=== PATIENT | male | born 1950 | race Caucasian/White ===

== ENCOUNTER 2025-04-20 06:24 | Inpatient (IN) ==
--- NOTE | 2025-04-18 09:32 | Anesthesiology Consultation ---
Date of Service April 18, 2025 Assessment & Plan (1) Encounter for pre-operative examination: - awaiting most recent PCP (Dr. Jose Ch [facility]) if available. Nothing further needed from abnormal EKG standpoint per detailed discussion with Dr. Baugh. - cardiology office note 10/20/24: "...heart failure with recovered EF secondary to nonischemic cardiomyopathy. Mild nonobstructive CAD...well compensated and euvolemic on exam...no angina...follow up in 1 year..." - Per tile roofer on 04/15: No known infectious disease contacts, current infectious disease symptoms in past 10 days or COVID positive test result in the past 30 days. Chart Review Chart Review: Patient NOT seen in Pre Admission Testing History Surgery Operation Date: 04/20/25 07:45 Proposed Procedures p L4-L5 Decompression and Fusion - Oracio Pemberton DO Height/Weight Height: 6 ft Weight: 72.575 kg Allergies Allergy/AdvReac Type Severity Reaction Status Date / Time [id number] Reductase AdvReac Severe Chest Verified 04/15/25 11:37 Inhibitor Pain, Muscle Pain Medications Home Medications Medication Instructions Recorded Confirmed Last Taken Balance Of Nature Fruit & Vegg 1 cap PO DAILY 04/15/25 04/15/25 Unknown Medical Marijuana 1 drp PO DAILY PRN Pain 04/15/25 04/15/25 Unknown carvedilol phosphate 20 mg 20 mg PO QAM 04/15/25 04/15/25 Unknown capsule,[id number] multiphase cholecalciferol (vitamin D3) 125 125 mcg PO BID 04/15/25 04/15/25 Unknown mcg (5,000 unit) tablet (Vitamin D3) diphenoxylate-atropine 2.5 1 tab PO DAILY PRN Diarrhea 04/15/25 04/15/25 Unknown mg-0.025 mg tablet fenofibrate micronized 200 mg 200 mg PO QAM 04/15/25 04/15/25 Unknown capsule gabapentin 300 mg capsule 300 mg PO BID 04/15/25 04/15/25 Unknown (Neurontin) hydrocodone 5 mg-acetaminophen 325 1 tab PO TID PRN Pain 04/15/25 04/15/25 Unkno wn mg tablet levocetirizine 5 mg tablet (Xyzal) 5 mg PO QPM 04/15/25 04/15/25 Unknown lisinopril 2.5 mg tablet 2.5 mg PO QDL 04/15/25 04/15/25 Unknown methylprednisolone 4 mg tablets in 4 mg PO DAILY 04/15/25 04/15/25 Unknown a dose pack (Medrol (Bowen)) pantoprazole 20 mg tablet,delayed 20 mg PO HS PRN Acid Reflux 04/15/25 04/15/25 Unknown release (Protonix) sertraline 50 mg tablet 50 mg PO HS 04/15/25 04/15/25 Unknown trazodone 50 mg tablet 50 mg PO HS 04/15/25 04/15/25 Unknown Past Medical History Medical History Acid reflux Adverse effect of anesthesia "can't sleep afterwards for 2 days" Back pain Lumbar History of kidney stones stents/lithotripsy [place] (hard of hearing) hearing aids - doesn't wear Hypertension Past Surgical History Surgical History History of arthroscopy of right shoulder History of cardiac catheterization no stents >20 years ago - [facility] Gill History of cholecystectomy History of colonoscopy History of cystoscopy multiple with stents History of esophagogastroduodenoscopy (EGD) History of lithotripsy History of nasal surgery Social History Smoking Status: Heavy tobacco smoker Smoking cigarettes per day: 1 1/2 pack Do You Dip or Chew Tobacco: No Hx Alcohol Use: No Hx Substance Use: Yes substance use type: other Substance Use Type Other:: Medical Marijuana Drops Last Used Substance: Unknown Last Used Substance Other:: advised Lab Results Anesthesia Preop Results Results Anesthesia Widget: WBC 7.82 K/ul (4.8-10.8) 04/14/25 Hgb 16.6 g/dl (14.0-18.0) 04/14/25 Hct 48.3 % (42.0-52.0) 04/14/25 Plt 267 K/uL (130-400) 04/14/25 Na 143 mmol/L (136-145) 04/14/25 K 4.1 mmol/L (3.5-5.1) 04/14/25 Cl 108 mmol/L (98-107) H 04/14/25 CO2 26 mmol/L (21-32) 04/14/25 BUN 24 mg/dl (6-23) H 04/14/25 Creat 1.26 mg/dl (0.6-1.4) 04/14/25 Glucose Level 129 mg/dl (70-99(Fasting)) H 04/14/25 PT 10.9 Seconds (9.0-12.0) 04/14/25 PTT 29 Seconds (21-31) 04/14/25 INR 1.0 (0.9-1.1) 04/14/25 Urine Color Yellow 04/14/25 Urine Appearance Clear (Clear) 04/14/25 Urine pH 5.0 (4.5-7.5) 04/14/25 Urine Specific [place] 1.021 (1.000-1.030) 04/14/25 Urine Protein Negative (Negative) 04/14/25 Urine Glucose (UA) Negative (Negative) 04/14/25 Urine Ketones Negative (Negative) 04/14/25 Urine Blood Negative (Negative) 04/14/25 Urine Nitrite Negative (Negative) 04/14/25 Urine Bilirubin Negative (Negative) 04/14/25 Urine Urobilinogen Negative (Negative) 04/14/25 Urine Leukocyte Esterase Trace (Negative) H 04/14/25 Urine WBC (Auto) 0-5 /hpf (0-5) 04/14/25 Urine RBC (Auto) 3-5 /hpf (0-2) H 04/14/25 Urine Hyaline Casts (Auto) 0-2 /lpf (0-2) 04/14/25 Urine Epithelial Cells (Auto) 0-2 /hpf (0-2) 04/14/25 Urine Bacteria (Auto) None Seen (None Seen) 04/14/25 Blood Type O Positive 04/14/25 Antibody Screen NEGATIVE 04/14/25 Testing Electrocardiogram Date: 04/14/25 Poor data quality Sinus rhythm, rate 85 bpm Rightward axis Possible anterior infarct, age undetermined Chest X-Ray Date: 04/14/25 No acute findings. Echocardiogram Date: 11/18/23 EF 50-55% Mild tricuspid regurgitation Mild pulmonic regurgitation Grade I diastolic dysfunction
[2025-04-20] MEDS ORDERED: ONDANSETRON INJ 2 MG/ML 2 ML VIAL IV PRN ×2 (06:53→12:16)
[2025-04-20] MEDS ORDERED: ATROPINE SULFATE 0.1 MG/ML 10ML SYR IV PRN (06:53)
[2025-04-20] MEDS ORDERED: PHENYLEPHRINE HCL 10 MG/ML VIAL ONE (06:57)
[2025-04-20] MEDS ORDERED: ONDANSETRON INJ 2 MG/ML 2 ML VIAL ONE (06:57)
[2025-04-20] MEDS ORDERED: DEXAMETHASONE SOD INJ 4 MG/ML VIAL ONE (06:57)
[2025-04-20] MEDS ORDERED: PROPOFOL IV EMULSION 10 MG/ML 20 ML VIAL IV ONE (06:57)
[2025-04-20] MEDS ORDERED: MIDAZOLAM HCL 1 MG/ML 2ML VIAL ONE (06:57)
[2025-04-20] MEDS ORDERED: LIDOCAINE 2% 2 ML VIAL/AMP(20MG/ML) INFIL ONE (06:57)
[2025-04-20] MEDS ORDERED: KETAMINE HCL 10MG/ML SYR ONE (06:58)
[2025-04-20] MEDS ORDERED: DexMEDEtomidine HCL IV 100 MCG/ML VIAL IV ONE (06:58)
[2025-04-20] MEDS ORDERED: ROCURONIUM BROMIDE 10 MG/ML 5 ML VIAL IV ONE (07:01)
[2025-04-20] MEDS ORDERED: LARYING-O-JET KIT (LTA) ONE (07:12)
[2025-04-20] MEDS: LR 60ML/HR IV SCH (07:16)
[2025-04-20] MEDS: CeleBREX 200 MG CAP PO SCH (07:17)
[2025-04-20] MEDS: LR 15ML/HR IV SCH (07:17)
[2025-04-20] MEDS: ACETAMINOPHEN 500 MG TAB PO SCH (07:18)
[2025-04-20] MEDS: GABAPENTIN 300 MG CAP PO SCH ×2 (07:21→20:45)
--- NOTE | 2025-04-20 07:40 | History & Physical Bridge Note ---
Date of Service April 20, 2025 History & Physical Bridge Note I have examined the patient, reviewed the History & Physical and in the interval since the performance of the History & Physical I have noted the following changes of clinical significance: no changes noted
--- NOTE | 2025-04-20 07:41 | History & Physical Report ---
Date of Service April 20, 2025 Assessment & Plan (1) Lumbar disc herniation with radiculopathy: Plan: L4-L5 decompression and fusion History of Present Illness Chief Complaint: Back and leg pain Primary Care Provider: Jose Ch MD This is a 74-year-old male presents chronic persistent back and leg pain after failing course of nonoperative care is here for surgical invention. Allergies Allergy/AdvReac Type Severity Reaction Status Date / Time [id number] Reductase AdvReac Severe Chest Verified 04/20/25 06:43 Inhibitor Pain, Muscle Pain Home Medications Medication Instructions Recorded Confirmed Type Balance Of Nature Fruit & Vegg 1 cap PO DAILY 04/15/25 04/20/25 History Medical Marijuana 1 drp PO DAILY PRN Pain 04/15/25 04/20/25 History carvedilol phosphate 20 mg 20 mg PO QAM 04/15/25 04/20/25 History capsule,ext.[id number] multiphase cholecalciferol (vitamin D3) 125 125 mcg PO BID 04/15/25 04/20/25 History mcg (5,000 unit) tablet (Vitamin D3) diphenoxylate-atropine 2.5 1 tab PO DAILY PRN Diarrhea 04/15/25 04/15/25 History mg-0.025 mg tablet fenofibrate micronized 200 mg 200 mg PO QAM 04/15/25 04/20/25 History capsule gabapentin 300 mg capsule 300 mg PO BID 04/15/25 04/20/25 History (Neurontin) hydrocodone 5 mg-acetaminophen 325 1 tab PO TID PRN Pain 04/15/25 04/20/25 History mg tablet levocetirizine 5 mg tablet (Xyzal) 5 mg PO QPM 04/15/25 04/20/25 History lisinopril 2.5 mg tablet 2.5 mg PO QDL 04/15/25 04/20/25 History methylprednisolone 4 mg tablets in 4 mg PO DAILY 04/15/25 04/20/25 History a dose pack (Medrol (Bowen)) pantoprazole 20 mg tablet,delayed 20 mg PO HS PRN Acid Reflux 04/15/25 04/20/25 History release (Protonix) sertraline 50 mg tablet 50 mg PO HS 04/15/25 04/20/25 History trazodone 50 mg tablet 50 mg PO HS 04/15/25 04/20/25 History Past Med/Surg History Problem List (Updated 04/20/25 @ 07:41 by Oracio Pemberton DO) Lumbar disc herniation with radiculopathy Encounter for pre-operative examination Medical History Acid reflux Adverse effect of anesthesia "can't sleep afterwards for 2 days" Back pain Lumbar History of kidney stones stents/lithotripsy [place] (hard of hearing) hearing aids - doesn't wear Hypertension Surgical History History of arthroscopy of right shoulder History of cardiac catheterization no stents >20 years ago - [facility] Gill History of cholecystectomy History of colonoscopy History of cystoscopy multiple with stents History of esophagogastroduodenoscopy (EGD) History of lithotripsy History of nasal surgery Social History Smoking Status: Heavy tobacco smoker Tobacco Type: Cigarettes Cigarettes Per Day: 1 1/2 pack; Second Hand Exposure: No; Do You Dip or Chew Tobacco: No; Tobacco Cessation Education Requested by Patient: No Hx Alcohol Use: No Hx Substance Use: Yes Last Used Substance: Unknown Last Used Substance Other:: advised Substance Use Type Other:: Medical Marijuana Drops Preferred Language: German Communication Ability: Effective Regulatory Services Consultant Required: No Beliefs That Will Affect Care: None Current Living Situation: Spouse Other Information That Helps Us Care for You: No Feels Safe at Home: Yes Safety Concerns: Feels Safe At This Time Assistive Devices: Cane, Denture - Upper, Denture - Lower, Glasses and Hearing Aid - Bilateral Assistive Devices Comment: unable to wear dentures/hearing aids Physical Exam Physical Exam: Patient is alert and oriented Heart regular rhythm Lungs clear Results & Data Results & Data Vital Signs (Past 12 Hours) Vital Signs Temp Pulse Resp BP Pulse Ox O2 Del Method 04/20/25 06:51 36.7 C 69 20 127/91 95 Room Air
[2025-04-20] MEDS ORDERED: GLYCOPYRROLATE 0.2 MG/ML VIAL ONE (08:08)
[2025-04-20] MEDS: ceFAZolin 330 MG/ML 1 GM VIAL ONE (08:18)
[2025-04-20] MEDS: BUPIVACAINE/EPINEPHRINE 0.25% 1:200,000 30 ML VIAL ONE (08:18)
[2025-04-20] MEDS ORDERED: SUGAMMADEX SODIUM 200 MG/2 ML VIAL IV ONE (08:31)
[2025-04-20] MEDS: FLOSEAL HEMOSTATIC MATRIX 10ML TOP ONE (09:04)
--- NOTE | 2025-04-20 09:15 | Operative Report ---
Post Operative Report Pre & Post Diagnosis Operation Date: 04/20/25 07:45 Preop diagnosis: #1 lumbar spondylosis with radiculopathy #2 lumbar disc herniation with radiculopathy Postop diagnosis: Same I identified the patient and participated in the time-out.: Yes Procedure Operation Date: 04/20/25 07:45 #1 lumbar decompression with bilateral medial facetectomies and foraminotomies and excision of herniated disc fragment L4-L5. #2 posterior spinal fusion L4-5 #3 placement posterior instrumentation L4-L5 using Jensen. #4 interbody fusion L4-5 #5 placement of Spira 15 x 26 mm at L4-L5. #6 placement of locally harvested morselized autograft in the posterior gutters. #7 placement of Proteus, with Koros bone graft in the posterior lateral gutters and os design interbody space. #9 application of versa wrap of the exposed dura. Surgeon Oracio Pemberton, DO Return Agent [place] Arielle Umaña Estimated Blood Loss 20 Findings Consistent with Post-Op Diagnosis Specimens None Indications This is a 74-year-old male presents for much diagnosis of failed course of nonoperative care and having more decline in status he is here for surgical invention. Description of Procedure Patient was met with identified informed consent obtained. Patient was then taken to the operative suite underwent and patient placed in a prone position on the Miguel table atop the [place] frame. All bony promises well-padded eyes inspected to ensure no external pressure placed upon them. This point lumbar spine is prepped and draped in normal sterile fashion. Sharp dissection with the assistance of Bovie cautery from down to and exposing the lamina and transverse processes of L4-L5. From caudal to cephalad fashion complete laminectomy of L4 was performed including bilateral medial facetectomies and foraminotomies as well as removal of disc fragments in the foramen at L4-5 on the right. Pedicle screws were then placed in L4-L5 bilaterally with the assistance of fluoroscopy and appropriate size dmitry placed. By way of transforaminal approach and right complete discectomy was performed endplates guided to subcortical bony bone and a 15 x 26 mm Spira cage filled with os design bone graft tapped in position. The rods were then compressed locked into final position bilaterally. The transverse processes of L4-5 burred to subcortical bone. Proteus combined with Koros bone graft and locally harvested morselized autograft placed in the posterior gutters. Versa wrap placed over the exposed dura. 15 round ANN drain inserted. The incision was then closed with 1 Vicryl in the fascia 2-0 Vicryl subcutaneously and 4 Monocryl for final skin closure. Steri-Strips and sterile dressing placed. Patient waken taken to PACU in stable condition. Please note Arielle Umaña was present at the entire procedure and brought the patient positioning complex portion of the surgery and final skin closure. I attest to the content of the Intraoperative Record and any orders documented therein. Any exceptions are noted below.
[2025-04-20] MEDS: HYDROmorphone INJ 1 MG/ML SYRINGE IV PRN ×2 (10:10→14:23)
--- NOTE | 2025-04-20 10:48 | Fluoroscopy Report ---
FL lumbar spine 2-3V CLINICAL HISTORY: L4-L5 DECOMPRESSION AND FUSION COMPARISON STUDY: No previous studies for comparison. FINDINGS: 11 seconds of fluoroscopic time was utilized. 2 fluoroscopic spot images were obtained. There are postsurgical changes of an L4-5 discectomy and interbody fusion. Interbody implant is visua lized. There are L4 and L5 pedicle screws with adjoining spinal rods. IMPRESSION: Postsurgical changes of an L4-5 discectomy and spinal fusion. ACT 112: Negative or not required by law. Electronically signed by: Uriel Oscar M.D. 04/20/2025 10:46 AM
[2025-04-20] MEDS ORDERED: DO NOT ADMINISTER FLU VACCINE PRN (12:16)
[2025-04-20] MEDS ORDERED: METOCLOPRAMIDE HCL INJ 5 MG/ML 2 ML VIAL IV PRN (12:16)
[2025-04-20] MEDS ORDERED: ACETAMINOPHEN 1,000 MG/100 ML VIAL IV PRN (12:16)
[2025-04-20] MEDS ORDERED: ONDANSETRON 4 MG OD TAB PO PRN (12:16)
[2025-04-20] MEDS ORDERED: diphenhydrAMINE Capsule 25 MG CAP PO PRN (12:16)
[2025-04-20] MEDS ORDERED: MAGNESIUM HYDROXIDE SUSP 30 ML UDC PO PRN (12:16)
[2025-04-20] MEDS ORDERED: LORazepam Inj 0.5 MG in SYRINGE 0.25 ML IV PRN (12:16)
[2025-04-20] MEDS ORDERED: SOD PHOSPHATE/SOD BIPHOSPHATE ENEMA 132 ML BTL PR PRN (12:16)
[2025-04-20] MEDS ORDERED: HYDROmorphone INJ 0.5 MG/0.5 ML SYR IV PRN (12:16)
[2025-04-20] MEDS ORDERED: PROMETHAZINE 12.5 MG/50.5 ML BAG IV PRN (12:16)
[2025-04-20] MEDS ORDERED: ACETAMINOPHEN 500 MG TAB PO PRN (12:16)
[2025-04-20] MEDS ORDERED: NALOXONE HCL 0.4 MG/1 ML VIAL/CARP IV PRN (12:16)
[2025-04-20] MEDS ORDERED: ALUMINUM/MAGNESIUM SUSP 30 ML UDC PO PRN (12:16)
[2025-04-20] MEDS ORDERED: DO NOT ADMINISTER PNEUMOCOCCAL VACCINE PRN (12:16)
[2025-04-20] MEDS ORDERED: FAMOTIDINE 20 MG TAB PO PRN (12:16)
--- NOTE | 2025-04-20 12:50 | Anesthesiology Progress Note ---
Date of Service April 20, 2025 Anesthesia Post Procedure Vital Signs Vital Signs: Temp Pulse Resp BP BP Pulse Ox O2 Del Method 04/20/25 12:00 66 12 126/74 92 Room Air 04/20/25 11:20 74 12 123/82 93 Room Air 04/20/25 11:05 64 12 126/72 92 Room Air 04/20/25 10:50 71 12 126/84 93 Room Air 04/20/25 10:35 69 12 123/74 95 Room Air 04/20/25 10:20 63 12 120/72 92 Room Air 04/20/25 10:10 64 19 136/78 92 Room Air 04/20/25 10:00 36.4 C L 65 17 142/79 H 92 Room Air 04/20/25 09:50 67 16 140/80 93 Oxymask 04/20/25 09:40 60 13 137/80 98 Oxymask 04/20/25 09:30 62 17 131/72 100 Oxymask 04/20/25 09:28 36.0 C L 63 18 125/70 97 Oxymask 04/20/25 06:51 36.7 C 69 20 127/91 95 Room Air O2 Flow Rate 04/20/25 12:00 04/20/25 11:20 04/20/25 11:05 04/20/25 10:50 04/20/25 10:35 04/20/25 10:20 04/20/25 10:10 04/20/25 10:00 04/20/25 09:50 2 04/20/25 09:40 3 04/20/25 09:30 6 04/20/25 09:28 6 04/20/25 06:51 Pain Intensity Back: Pain Intensity: 4 Transfer of Care Handoff Completed per policy Notes Mental Status: alert / awake / arousable Patient Amnestic to Procedure: Yes Nausea / Vomiting: adequately controlled Pain: adequately controlled Airway Patency, RR, SpO2: stable & adequate BP & HR: stable & adequate Hydration State: stable & adequate Anesthetic Complications: no major complications apparent and Pt Satisfied with anesthetic care
--- NOTE | 2025-04-20 14:12 | Consultation ---
Date of Consultation April 20, 2025 Assessment & Plan (1) Lumbar disc herniation with radiculopathy: (2) S/P spinal surgery: Post op day# 0 S/P decompression and fusion L4-L5 by Dr Niecy EAGLE #20ml Pain management per ortho Wound management per ortho PT/OT as appropriate DVT prophylaxis per ortho Incentive spirometry Monitor H&H for acute blood loss anemia; pre-op Hgb: 16 (3) Hypertension: Stable Will hold home lisinopril and reassess tomorrow Pt's home carvedilol ER 20mg daily is non-formulary so will switch to carvedilol 6.25mg BID starting tomorrow (4) HLD (hyperlipidemia): Continue lovastatin, fenofibrate (5) Nonischemic cardiomyopathy: History of nonischemic cardiomyopathy with recovered EF Mild nonobstructive CAD 09/06 2008 cardiac cath with EF 30%. Per cardiology note on 10/20/2024 echo 10/2021 normal systolic function, mild MR Continue carvedilol as above, and holding lisinopril for now (6) History of gastritis: Continue PPI (7) Anxiety: Continue sertraline On medical marijuana (8) Insomnia: Continue trazodone (9) Tobacco use: Smokes 1.5ppd Not interested in quitting Requests nicotine patch DVT Prophylaxis SCDs Disposition per primary service Follows with Dr Ch, [facility] for routine care Pt was seen and care coordinated with Dr Cotton. See addendum Thank you for this consultation. We will follow the patient with you during their hospital stay. You can reach a member of the [facility] Hospitalist Team 20/01 via [facility] Supervising Physician Co-Signing Physician Notes Pt seen and examined by me, care coordinated w/ [place] PA-C, pls refer to her note above for further detail. Pt is 74 yo M with HTN, HLD, h/o nonischemic cardiomyopathy with recovered EF, mild nonobstructive CAD, h/o gastritis, anxiety, insomnia, medical marijuana use, tobacco use seen in medical consultation s/p decompression and fusion L4-L5 today by Dr Pemberton. Post op patient reports some low back pain. Denies fever/chills, diaphoresis, N/V/D/C, DAVIS, dizziness, CP, SOB, palpitations, cough, sore throat, rhinorrhea, abdominal pain, weakness, extremity edema, rashes, urinary symptoms. Pt is currently awake, alert, answers appropriately, hard of hearing. Heart sounds regular, lungs clear, abdomen soft, nontender, moves extremities. Skin warm and dry. Cont. to closely monitor, get H&H tmrw AM. MD Yury History of Present Illness Requesting Physician: Dr Pemberton Reason for Consultation: Post op medical management Attending Physician: Oracio Pemberton DO History of Present Illness Patient is 74 year old male with PMH HTN, HLD, h/o nonischemic cardiomyopathy with recovered EF, mild nonobstructive CAD, h/o gastritis, anxiety, insomnia, medical marijuana use, tobacco use seen in medical consultation s/p decompression and fusion L4-L5 today by Dr Pemberton. Post op patient reports some low back pain. No Han cath in place currently and hasn't urinated yet post op. Is requesting nicotine patch. Denies fever/chills, diaphoresis, N/V/D/C, DAVIS, dizziness, CP, SOB, palpitations, cough, sore throat, rhinorrhea, abdominal pain, weakness, extremity edema, rashes, urinary symptoms. Allergies Allergy/AdvReac Type Severity Reaction Status Date / Time [id number] Reductase AdvReac Severe Chest Verified 04/20/25 06:43 Inhibitor Pain, Muscle Pain Home Medications Medication Instructions Recorded Confirmed Type Balance Of Nature Fruit & Vegg 1 cap PO DAILY 04/15/25 04/20/25 History Medical Marijuana 1 drp PO DAILY PRN Pain 04/15/25 04/20/25 History carvedilol phosphate 20 mg 20 mg PO QAM 04/15/25 04/20/25 History capsule,ext.[id number] multiphase cholecalciferol (vitamin D3) 125 125 mcg PO BID 04/15/25 04/20/25 History mcg (5,000 unit) tablet (Vitamin D3) diphenoxylate-atropine 2.5 1 tab PO DAILY PRN Diarrhea 04/15/25 04/20/25 History mg-0.025 mg tablet fenofibrate micronized 200 mg 200 mg PO QAM 04/15/25 04/20/25 History capsule gabapentin 300 mg capsule 300 mg PO BID 04/15/25 04/20/25 History (Neurontin) hydrocodone 5 mg-acetaminophen 325 1 tab PO TID PRN Pain 04/15/25 04/20/25 History mg tablet levocetirizine 5 mg tablet (Xyzal) 5 mg PO QPM 04/15/25 04/20/25 History lisinopril 2.5 mg tablet 2.5 mg PO QDL 04/15/25 04/20/25 History methylprednisolone 4 mg tablets in 4 mg PO DAILY 04/15/25 04/20/25 History a dose pack (Medrol (Bowen)) pantoprazole 20 mg tablet,delayed 20 mg PO HS PRN Acid Reflux 04/15/25 04/20/25 History release (Protonix) sertraline 50 mg tablet 50 mg PO HS 04/15/25 04/20/25 History trazodone 50 mg tablet 50 mg PO HS 04/15/25 04/20/25 History oxycodone 5 mg tablet 5 mg PO Q6H PRN pain #30 tabs 04/20/25 Rx tramadol 50 mg tablet 50 mg PO Q6H PRN pain, moderate 04/20/25 Rx #30 tabs Patient History Medical History (Updated 04/20/25 @ 15:02 by [place] PA-C) Tobacco use Insomnia Anxiety History of gastritis Nonischemic cardiomyopathy HLD (hyperlipidemia) Back pain Lumbar Adverse effect of anesthesia "can't sleep afterwards for 2 days" History of kidney stones stents/lithotripsy Acid reflux [place] (hard of hearing) hearing aids - doesn't wear Hypertension Surgical History (Updated 04/20/25 @ 15:02 by [place] PA-C) History of arthroscopy of right shoulder History of lithotripsy History of cystoscopy multiple with stents History of cholecystectomy History of esophagogastroduodenoscopy (EGD) History of colonoscopy History of nasal surgery History of cardiac catheterization no stents >20 years ago - [facility] Gill Social History Smoking Status: Heavy tobacco smoker Tobacco Type: Cigarettes Cigarettes Per Day: 1 1/2 pack; Second Hand Exposure: No; Do You Dip or Chew Tobacco: No; Tobacco Cessation Education Requested by Patient: No Hx Alcohol Use: No Hx Substance Use: Yes Last Used Substance: Unknown Last Used Substance Other:: advised Substance Use Type Other:: Medical Marijuana Drops Preferred Language: Ivorian Communication Ability: Effective [employer] Required: No Beliefs That Will Affect Care: None Current Living Situation: Spouse Other Information That Helps Us Care for You: No Feels Safe at Home: Yes Safety Concerns: Feels Safe At This Time Assistive Devices: Cane, Denture - Upper, Denture - Lower, Glasses and Hearing Aid - Bilateral Assistive Devices Comment: unable to wear dentures/hearing aids Review of Systems Review of Systems: All systems reviewed & are unremarkable except as noted in HPI & below Physical Exam Physical Exam: General: no distress, WDWN Head: normocephalic, atraumatic Eyes: conjunctiva non-injected, anicteric ENT: normal inspection external ears, nose, mucous membranes moist Neck: supple, trachea midline Lungs: clear, no respiratory distress, no wheezing/rhonchi/rales CV: RRR, no murmur, no pretibial edema Abd: normal BS, soft, non-tender Back: surgical dressing in place, +ANN drain with serosanguineous drainage, bilateral pedal pushes and pulls intact, sensation to light touch intact Ext: no cyanosis, no calf tenderness Neuro: A&O x 3, no focal deficits noted, normal affect Skin: warm, dry Results & Data Vital Signs (Past 12 Hours) Vital Signs Temp Pulse Resp BP BP Pulse Ox O2 Del Method 04/20/25 13:41 36.4 C L 77 16 122/78 92 Room Air 04/20/25 12:30 74 14 123/70 92 Room Air 04/20/25 12:00 66 12 126/74 92 Room Air 04/20/25 11:20 74 12 123/82 93 Room Air 04/20/25 11:05 64 12 126/72 92 Room Air 04/20/25 10:50 71 12 126/84 93 Room Air 04/20/25 10:35 69 12 123/74 95 Room Air 04/20/25 10:20 63 12 120/72 92 Room Air 04/20/25 10:10 64 19 136/78 92 Room Air 04/20/25 10:00 36.4 C L 65 17 142/79 H 92 Room Air 04/20/25 09:50 67 16 140/80 93 Oxymask 04/20/25 09:40 60 13 137/80 98 Oxymask 04/20/25 09:30 62 17 131/72 100 Oxymask 04/20/25 09:28 36.0 C L 63 18 125/70 97 Oxymask 04/20/25 06:51 36.7 C 69 20 127/91 95 Room Air O2 Flow Rate 04/20/25 13:41 04/20/25 12:30 04/20/25 12:00 04/20/25 11:20 04/20/25 11:05 04/20/25 10:50 04/20/25 10:35 04/20/25 10:20 04/20/25 10:10 04/20/25 10:00 04/20/25 09:50 2 04/20/25 09:40 3 04/20/25 09:30 6 04/20/25 09:28 6 04/20/25 06:51
[2025-04-20] MEDS: NICOTINE 21 MG/24 HR TDSY TD SCH (15:34)
[2025-04-20] MEDS: LACTATED RINGER'S 1,000 ML IV SCH (18:29)
[2025-04-20] MEDS: SERTRALINE HCL 50 MG TABLET PO SCH (20:44)
[2025-04-20] MEDS: CETIRIZINE HCL 10 MG TABLET PO SCH (20:44)
[2025-04-20] MEDS: CHOLECALCIFEROL 125 MCG (5,000 UNITS) TAB PO SCH (20:44)
[2025-04-20] MEDS: DOCUSATE SODIUM/SENNA 50/8.6MG TAB PO SCH (20:48)
[2025-04-21] MEDS: POLYETHYLENE (MIRALAX) 17 GM PACK PO SCH (05:16)
[2025-04-21 07:40] LABS: Hematocrit (blood only) 40.3 % (42.0-52.0); Hemoglobin 13.9 g/dl (14.0-18.0); Immature Granulocytes # (auto) 0.07 K/uL (0.01-0.20); Immature Granulocytes % (auto) 0.7 %; Mean Corpuscular Hemoglobin 30.5 pg (25.0-34.0); Mean Corpuscular Volume 88.4 fL (80.0-100.0); Platelet Count 215 K/uL (130-400); RDW Standard Deviation 45.4 fL (36.4-46.3); Red Blood Count 4.56 M/uL (4.70-6.10); White Blood Count 10.38 K/ul (4.8-10.8)
[2025-04-21 07:57] LABS: Anion Gap 8.0 (3-11); Blood Urea Nitrogen 23.0 mg/dl (6-23); Calcium 9.4 mg/dl (8.6-10.3); Carbon Dioxide 27.0 mmol/L (21-32); Chloride 105.0 mmol/L (98-107); Creatinine Clr Calc Pharmacy 56.6 ml/min; Glucose 107.0 mg/dl (70-99(Fasting)); Potassium 4.1 mmol/L (3.5-5.1); Sodium 140.0 mmol/L (136-145)
[2025-04-21] MEDS: FENOFIBRATE NANOCRYSTALLIZED 145 MG TABLET PO SCH (08:28)
[2025-04-21] MEDS: REMOVE NICODERM PATCH SCH (08:29)
[2025-04-21] MEDS: dexAMETHasone 6 MG in SYRINGE 0 ML IV SCH (08:29)
[2025-04-21] MEDS ORDERED: NON-FORMULARY MEDICATION (Methylprednisolone [Medrol (Pak)] 4 mg Tablets,Dose Pack) PO SCH (09:00)
[2025-04-21] MEDS ORDERED: CARVEDILOL PHOSPHATE 20 MG PO SCH (09:00)
--- NOTE | 2025-04-21 09:59 | Orthopedic Progress Note ---
Date of Service April 21, 2025 Assessment & Plan (1) Lumbar disc herniation with radiculopathy: Plan: At this time we will continue physical therapy monitor his ANN operatively discharge home in next few days. Admission and Anticipated Discharge Date Admission Date: April 20, 2025 Subjective Patient's back pain is controlled leg symptoms markedly improved. He is up and ambulating halls. Physical Exam Physical Exam: Patient is currently ambulating the halls with his therapist. Discussed active testing. Appears comfortable. Results & Data Vital Signs (Past 12 Hours) Vital Signs Temp Pulse Resp BP BP Pulse Ox O2 Del Method 04/21/25 07:13 36.6 C 67 18 148/82 H 95 Room Air 04/21/25 03:33 36.5 C 64 16 128/68 97 Room Air 04/20/25 23:24 36.8 C 72 20 149/82 H 96 Room Air
--- NOTE | 2025-04-21 13:36 | Hospitalist Progress Note ---
Date of Service April 21, 2025 Assessment & Plan (1) Lumbar disc herniation with radiculopathy: (2) S/P spinal surgery: Plan: Post op day# 1 S/P decompression and fusion L4-L5 by Dr iNecy EAGLE #20m Pain management per ortho Wound management per ortho PT/OT as appropriate DVT prophylaxis per ortho Incentive spirometry Monitor H&H for acute blood loss anemia; pre-op Hgb: 16 - total ANN drain outs ~105 since midnight, trending down (3) Hypertension: Plan: Stable Pt's home carvedilol ER 20mg daily is non-formulary so will switch to carvedilol 6.25mg BID, continue Resume lisionpril 2.5 QAm on 04/22 (4) HLD (hyperlipidemia): Plan: Continue lovastatin, fenofibrate (5) Nonischemic cardiomyopathy: Plan: History of nonischemic cardiomyopathy with recovered EF Mild nonobstructive CAD 09/06 2008 cardiac cath with EF 30%. Per cardiology note on 10/20/2024 echo 10/2021 normal systolic function, mild MR Continue carvedilol as above, and holding lisinopril for now (6) History of gastritis: Plan: Continue PPI (7) Anxiety: Plan: Continue sertraline On medical marijuana (8) Insomnia: Plan: Continue trazodone (9) Tobacco use: Plan: Smokes 1.5ppd Not interested in quitting Requests nicotine patch DVT Prophylaxis: SCDs Lines: PIV x 1, ANN drain CODE: Full Disposition per primary service Follows with Dr Ch, [facility] for routine care Thank you for this consultation of Mr. Avila. We will follow the patient with you during their hospital stay. You can reach a member of the [place] Hospitalist Team 20/01 via [employer] Admission and Anticipated Discharge Date Admission Date: April 20, 2025 Supervising Physician Co-Signing Physician Notes Patient seen and examined Agree with findings and plans as detailed by Jina Mo PA-C Subjective Pt seen and examined this morning. He is doing well, seen ambulating about the leija with walker. Pt reports no pain with walking, and that he only feels slightly sore in his lower back when he is seating upright in a chair. Has not moved his bowels since being in the hospital. 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 Lives at home with his . Is hoping for dc home tomorrow. 10 point ROS reviewed and otherwise negative. Review of Systems Review of Systems: Constitutional: No fever, sweats or chills Eyes: No diplopia, no worsening or blurred vision ENT: normal hearing, no trouble swallowing Respiratory: No cough, sputum, dyspnea at rest or on exertion Cardiovascular: No chest pain, tightness or palpitations Back: As per HPI Abdomen: No pain, nausea, vomiting, diarrhea or constipation Musculoskeletal: No joint pain, calf pain, swelling Neurologic: No weakness, numbness/tingling, or balance problems Psychiatric: No anxiety or depression Skin: No rash or itch Physical Exam Physical Exam: General: awake, alert, no apparent distress, white, thin, male Head: Normocephalic, atraumatic ENT: PERRL, EOMI, no pharyngeal exudate, mucous membranes moist Chest: Clear to auscultation, on room air, no adventitious breath sounds Cardiac: Regular rate and rhythm, no murmur, no JVD, normal peripheral pulses, good capillary refill Back: dressing c/d/i, ANN drain in place, serosanguineous outs Abdominal: NABS x 4 quadrants, soft, nondistended, nontender to palpation, no rebound or guarding Extremities: Normal inspection, no peripheral edema or erythema, calfs nontender to palpation Psych: Normal mood and affect Neuro: AAO x 3, strength intact bilaterally and rated 5/5, no motor deficits, speech is clear, no peripheral sensory deficits Results & Data Results & Data Vital Signs (Past 12 Hours) Vital Signs Temp Pulse Resp BP BP Pulse Ox O2 Del Method 04/21/25 11:02 36.3 C L 70 16 135/75 94 Room Air 04/21/25 07:13 36.6 C 67 18 148/82 H 95 Room Air 04/21/25 07:10 Room Air 04/21/25 03:33 36.5 C 64 16 128/68 97 Room Air
[2025-04-21] MEDS: LORazepam 0.5 MG TAB PO PRN (21:15)
[2025-04-22 07:50] VITALS: RESP 16; TEMP 98.1; O2SAT 96
[2025-04-22 07:50] LABS: Hematocrit (blood only) 44.2 % (42.0-52.0); Hemoglobin 15.1 g/dl (14.0-18.0); Mean Corpuscular Hemoglobin 30.1 pg (25.0-34.0); Mean Corpuscular Volume 88.2 fL (80.0-100.0); Platelet Count 241 K/uL (130-400); RDW Standard Deviation 45.2 fL (36.4-46.3); Red Blood Count 5.01 M/uL (4.70-6.10); White Blood Count 9.80 K/ul (4.8-10.8)
--- NOTE | 2025-04-22 09:47 | Discharge Summary ---
Date of Service April 22, 2025 Admission HPI Per Admitting Provider This is a 74-year-old male presents chronic persistent back and leg pain after failing course of nonoperative care is here for surgical invention. Principal Diagnosis Lumbar spondylosis with radiculopathy Discharge Data Allergies Allergy/AdvReac Type Severity Reaction Status Date / Time Fopltem-TEJ-ObE Reductase AdvReac Severe Chest Verified 04/20/25 06:43 Inhibitor Pain, Muscle Pain Consultations 04/20/25 12:16 Consult Hospitalist Routine Procedures Performed Operation Date: 04/20/25 07:45 Actual Procedures p L4-L5 Decompression and Fusion(Not Applicable) - Oracio Pemberton DO Ordered Studies 04/20/25 07:45 FL lumbar spine 2-3V Routine Hospital Course (1) Lumbar disc herniation with radiculopathy: Patient underwent lumbar decompression fusion tolerated as well as negative orthopedic for postoperative. Possibly progressed properly. Ambulating halls. ANN drain decreasing. Pain well-controlled. Extra strength testing. Subsidy discharged home. Discharge orders and instructions from the chart for further review. Total Time Total Time Spent Total Time Spent (In Minutes): 20 minutes Discharge Plan Discharge Items Patient Disposition: Home - Self-Care Reason For Visit: HNP Lumbar, Foraminal Stenosis Lumbar Discharge Diagnosis: Lumbar disc herniation with radiculopathy Activity: As commented below Non-emergency contact: Primary Care Provider Call non-emergency contact if: you have any medication questions Follow-up/Referrals: Steve Wilson [Non-Staff] - Diet: Regular Addtl Attending Provider Instructions: ACTIVITY RECOMMENDATIONS: SELF CARE INSTRUCTIONS AFTER THORACIC/LUMBAR FUSIONS 1. You may walk to your tolerance. It is good exercise for your legs and back. Expect some back and intermittent leg aches and pains. 2. You may perform "counter-top" level activities (make a sandwich, ronal with a project, etc.). 3. No bending or lifting of more than 10 pounds or back twisting of any nature (roll like a log when turning in bed). 4. You may ride in a car for 20-30 minutes at a time. No driving until after your first visit with your doctor. 5. Frequent changes of position and restricting sitting to 30 minutes at a time will help limit the amount of back spasms and stiffness you may experience. 6. You may discontinue the use of ambulatory aids (cane, crutches, etc.) once your strength and confidence allow. 7. You may launching pad mechanic the shower and let water strike your incision when you arrive home at least once daily. Do not take a tub bath, sit in a hot tub or go into a swimming pool until after your first recheck in the office. 8. You may resume previous diet. SPECIAL CARE INSTRUCTIONS: VERY IMPORTANT TO READ AND REVIEW A. Your surgical incision has been closed with a cosmetic suture under the skin that will dissolve in about 6 weeks. In 14 days, you can use a pair of clean scissors and cut the suture that is left outside of the skin at the ends of your incision. 1. The small skin tapes can be removed 7 days after surgery if they have not fallen off by that point. 2. You may keep the wound open to air as much as possible to promote healing after post-op day number 5 unless told otherwise by your doctor. 3. If you think the wound looks like it is becoming infected (redness or worsening drainage) and/or you are experiencing fever, chill or worsening back pain and muscle spasms, contact the office so that we may evaluate you as soon as possible. B. Complications are uncommon, but please contact us if you have any signs or symptoms of: 1. wound infection (fever higher than 102.5 degrees F, redness, separation of wound, drainage, or increasing pain from the incision) 2. blood clots in legs (pain, swelling, redness and warmth in legs) 3. urinary tract infection (fever higher than 102.5 degrees F, burning upon urination or increased frequency of urination) 4. nerve problems (inability to walk on your toes or heels, numbness, loss of bowel or bladder control) 5. any other symptoms that concern you C. Please call the office at if you have any concerns or questions about your operation or recovery. D. No smoking! Smoking drastically decreases the chance of a solid fusion. E. Do not take any anti-inflammatory medications (Indocin, Advil, Motrin, Aspirin, Naprosyn, etc.) as these may inhibit the chance of a solid fusion. Tylenol is okay to take for pain. MANAGING PAIN AFTER SPINAL SURGERY 1. Narcotic medication is intended for short-term use and will be provided for surgical pain. Surgical pain usually lasts for a period of 4-6 weeks. Narcotic medication includes Percocet, Vicodin, Darvocet, Tylenol #3 or Lortab. 2. Longer-term pain is more appropriately treated with non-narcotic medication such as Tylenol ES. 3. Muscle spasm is not appropriately treated with narcotics. Muscle relaxers such as Soma, Flexeril or Skelaxin can be used along with Tylenol ES. 4. Remember that we all live with some "aches and pains". This is not unusual or uncommon after an injury or as we get older. a. Back pain is expected and may include muscle spasms for 4 to 6 weeks after surgery. The pain should gradually improve. If the pain worsens for no apparent reason, please contact the office. b. Intermittent leg pain may also be experienced and should not be concerned about unless it worsens for no apparent reason. If so, please contact the office. 5. We will provide appropriate medication within the normal guidelines of their prescribed use. We will also be very cautious and aware of potential abuse and extended duration of patients' medication needs. a. Pain medications are for your comfort and to assist with sleep and rest so that the tissue can heal. They are not provided in order to return to normal activity and should not be used through the day. To do so or worsening pain at night can result from ongoing tissue damage and development of tolerance to the prescribed medicine. 6. Please allow 2-3 days to process refills. Prescriptions will not be mailed but must be picked up at the office. FOLLOW UP VISIT: Keep your scheduled follow-up appointment. Any questions, please call the office at . Pending Studies at Discharge: No Stand-Alone Forms: [facility], Smoking Cessation Medications and DC Order Prescriptions: New tramadol 50 mg tablet 50 mg PO Q6H PRN (Reason: pain, moderate) Qty: 30 0RF oxycodone 5 mg tablet 5 mg PO Q6H PRN (Reason: pain) Qty: 30 0RF lorazepam 0.5 mg Tablet 0.5 mg PO HS PRN (Reason: sleep) Qty: 30 0RF Continued trazodone 50 mg Tablet 50 mg PO HS hydrocodone-acetaminophen 5-325 mg Tablet 1 tab PO TID PRN (Reason: Pain) diphenoxylate-atropine 2.5-0.025 mg Tablet 1 tab PO DAILY PRN (Reason: Diarrhea) fenofibrate micronized 200 mg Capsule 200 mg PO QAM pantoprazole [Protonix] 20 mg Tablet,Delayed Release (Dr/Ec) 20 mg PO HS PRN (Reason: Acid Reflux) gabapentin [Neurontin] 300 mg Capsule 300 mg PO BID methylprednisolone [Medrol (Bowen)] 4 mg Tablets,Dose Pack 4 mg PO DAILY Rx Instructions: Taper; started on 04/14/25 sertraline 50 mg Tablet 50 mg PO HS lisinopril 2.5 mg Tablet 2.5 mg PO QDL carvedilol phosphate 20 mg Capsule, Er Multiphase 24 Hr 20 mg PO QAM Rx Instructions: must administer with a meal/food levocetirizine [Xyzal] 5 mg Tablet 5 mg PO QPM cholecalciferol (vitamin D3) [Vitamin D3] 125 mcg (5,000 unit) Tablet 125 mcg PO BID Balance Of Nature Fruit & Vegg 1 cap PO DAILY Medical Marijuana 1 drp PO DAILY PRN (Reason: Pain) Discharge Orders: Discharge Order (Routine); Ordered 04/22/25 Ordered By: Oracio Pemberton Admission Data Admit Date/Time: 04/20/25 09:19 Attending Provider: Oracio Pemberton Admit Provider: Oracio Pemberton Primary Care Provider: Jose Ch Other Providers: [facility], [facility],Home Health; Roxy Arroyo
[2025-04-22 10:48] VITALS: BP 137/77; PULSE 69
--- NOTE | 2025-04-22 11:57 | Hospitalist Progress Note ---
Date of Service April 22, 2025 Assessment & Plan (1) Lumbar disc herniation with radiculopathy: (2) S/P spinal surgery: Plan: Post op day# 1 S/P decompression and fusion L4-L5 by Dr Niecy EAGLE #20mL Pain management per ortho Wound management per ortho PT/OT as appropriate DVT prophylaxis per ortho Incentive spirometry Monitor H&H for acute blood loss anemia; pre-op Hgb: 16, hgb 15.1 today - total ANN drain outs ~25 since midnight, drain being pulled this morning Ortho spine plans to discharge patient today (3) Hypertension: Plan: Stable Pt's home carvedilol ER 20mg daily is non-formulary so will switch to carvedilol 6.25mg BID, continue - resume home meds on dc Resume lisionpril 2.5 QAmtoday, bp is mildly elevated at 153/86, pt is anticipating dc. Pain is controlled. (4) HLD (hyperlipidemia): Plan: Continue lovastatin, fenofibrate (5) Nonischemic cardiomyopathy: Plan: History of nonischemic cardiomyopathy with recovered EF Mild nonobstructive CAD 09/06 2008 cardiac cath with EF 30%. Per cardiology note on 10/20/2024 echo 10/2021 normal systolic function, mild MR Continue carvedilol as above, resumed lisinopril today (6) History of gastritis: Plan: Continue PPI (7) Anxiety: Plan: Continue sertraline On medical marijuana (8) Insomnia: Plan: Continue trazodone (9) Tobacco use: Plan: Smokes 1.5ppd Not interested in quitting Requests nicotine patch DVT Prophylaxis: SCDs Lines: PIV x 1, ANN drain CODE: Full Disposition per primary service Follows with Dr Ch, [facility] for routine care Thank you for this consultation of Mr. Avila. We will follow the patient with you during their hospital stay. You can reach a [facility] of [facility] via [employer] Admission and Anticipated Discharge Date Admission Date: April 20, 2025 Supervising Physician Co-Signing Physician Notes Patient seen and examined Agree with findings and plans as detailed by Liam Mo PA-C Subjective Pt seen and examined this morning. He is doing well, pain is well controlled. Anticipating dc home today and is coming to pick him up. Pt moved bowels yesterday. Tolerating PO intake. 10 point ROS reviewed and otherwise negative. Physical Exam Physical Exam: General: awake, alert, no apparent distress, white, thin, male Head: Normocephalic, atraumatic ENT: PERRL, EOMI, no pharyngeal exudate, mucous membranes moist Chest: Clear to auscultation, on room air, no adventitious breath sounds Cardiac: Regular rate and rhythm, no murmur, no JVD, normal peripheral pulses, good capillary refill Back: dressing c/d/i, ANN drain in place, minimal serosanguineous outs Abdominal: NABS x 4 quadrants, soft, nondistended, nontender to palpation, no rebound or guarding Extremities: Normal inspection, no peripheral edema or erythema, calfs nontender to palpation Psych: Normal mood and affect Neuro: AAO x 3, strength intact bilaterally and rated 5/5, no motor deficits, speech is clear, no peripheral sensory deficits Results & Data Results & Data Vital Signs (Past 12 Hours) Vital Signs Temp Pulse Pulse Resp BP BP Pulse Ox 04/22/25 10:47 36.7 C 69 76 16 153/86 H 137/77 96 04/22/25 10:42 04/22/25 07:48 36.7 C 76 16 153/86 H 96 04/22/25 00:18 36.6 C 67 18 144/64 H 94 O2 Del Method 04/22/25 10:47 04/22/25 10:42 Room Air 04/22/25 07:48 Room Air 04/22/25 00:18 Room Air
== END 2025-04-22 11:57 | disposition home health service (06) | DRG 402 ==
LOC: ASU 06:24 → PACUINP 09:19 → 3N 13:42